=== PATIENT | male | born 1995 | race Two or more races ===

== ENCOUNTER 2017-09-23 02:24 | Emergency (ER) | payer SELFPAY ==
[~2017-09-23] VITALS: Ht 175.3 cm; Wt 72.6 kg
[~2017-09-23 02:24] MED LIST: NKM
[2017-09-23] MEDS ORDERED: LORazepam Inj 2mg/ml 1ml IV ONE (02:30)
[2017-09-23 02:37] VITALS: BP 137/71
--- NOTE | 2017-09-23 02:51 | Emergency Room Report ---
History of Present Illness General Chief Complaint: Dyspnea/Respdistress Source: Patient Present Illness HPI [facility] was acting [facility]. Police were contacted. He states that the [place] cartel is after him. Paramedics were called after that because he is complaining the shortness of breath and tingling in his hands. He has a history of asthma. He denies suicidal or homicidal ideation. He denies prior psychiatric illness. c/o dry mouth, racing heart and tingling of hands and feet. Denies SI or HI. No NVD, chest pain, dysuria, joint pain, headache, trauma. Denies drugs or alcohol. Allergies: Coded Allergies: No Known Allergies (Unverified , 09/23/17) Patient History Past Medical History: see triage record Social History: Denies: smoking, alcohol use, drug use - see tox Social History Narrative sells cell phones Reviewed Nursing Documentation: PMH: Agreed, PSxH: Agreed Nursing Documentation-PMH Past Medical History: No Stated History Review of Systems All Other Systems: negative except mentioned in HPI Physical Exam Vital Signs Date Time Temp Pulse Resp B/P (MAP) Pulse Ox O2 Delivery O2 Flow Rate FiO2 09/23/17 02:19 98.1 128 18 141/107 99 Room Air Sp02 EP Interpretation: reviewed, normal General Appearance: mild distress Head: normocephalic Eyes: bilateral eye PERRL, bilateral eye Scleral Injection ENT: dry mucus membranes - with gum residue lips Neck: supple Respiratory: lungs clear, normal breath sounds Cardiovascular #1: tachycardia Cardiovascular #2: 2+ radial (R) Gastrointestinal: normal inspection, normal bowel sounds, non tender, no mass, non-distended Musculoskeletal: back normal, gait/station normal, normal range of motion Neurologic: alert, oriented x3, motor strength/tone normal, DTRs symmetric, sensory intact, cerebellar normal, normal gait, speech normal - pressured Psychiatric: no suicidal/homicidal ideation, anxious - slight paranoid ideation Skin: normal inspection, warm/dry Medical Decision Making Diagnostic Impression: 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 Differential includes hyperventilation, exacerbation of paranoid schizophrenia, electrolyte imbalance, acute myocardial infarction, occult infection, drug ingestion amongst others. Evaluation with EKG, chest x-ray and labs. This will be treated with IV hydration and Ativan. We need to exclude rhabdomyolysis and renal failure. EKG, no injury, CXR no infiltrate, labs with + amphetamine. CO2 low suggests hyperventilation. Patient improved with treatment. No longer paranoid or suicidal. Patient stable for outpatient observation and treatment. Laboratory Tests Test 09/23/17 03:00 09/23/17 03:15 White Blood Count 8.3 K/UL (4.8-10.8) Red Blood Count 5.81 M/UL (4.70-6.10) Hemoglobin 17.0 G/DL (14.2-18.0) Hematocrit 51.1 % (42.0-52.0) Mean Corpuscular Volume 88 FL (80-99) Mean Corpuscular Hemoglobin 29.3 PG (27.0-31.0) Mean Corpuscular Hemoglobin Concent 33.3 G/DL (32.0-36.0) Red Cell Distribution Width 11.1 % (11.6-14.8) L Platelet Count 345 K/UL (150-450) Mean Platelet Volume 6.7 FL (6.5-10.1) Neutrophils (%) (Auto) 77.5 % (45.0-75.0) H Lymphocytes (%) (Auto) 15.2 % (20.0-45.0) L Monocytes (%) (Auto) 6.1 % (1.0-10.0) Eosinophils (%) (Auto) 0.1 % (0.0-3.0) Basophils (%) (Auto) 1.1 % (0.0-2.0) Sodium Level 142 MMOL/L (136-145) Potassium Level 4.4 MMOL/L (3.5-5.1) Chloride Level 102 MMOL/L (98-107) Carbon Dioxide Level 20 MMOL/L (21-32) L Anion Gap 20 mmol/L (5-15) H Blood Urea Nitrogen 6 mg/dL (7-18) L Creatinine 1.3 MG/DL (0.55-1.30) Estimate Glomerular Filtration Rate > 60 mL/min (>60) Glucose Level 100 MG/DL (74-106) Calcium Level 9.2 MG/DL (8.5-10.1) Total Bilirubin 0.4 MG/DL (0.2-1.0) Aspartate Amino Transferase (AST) 42 U/L (15-37) H Alanine Aminotransferase (ALT) 41 U/L (12-78) Alkaline Phosphatase 92 U/L (46-116) Total Creatine Kinase 898 U/L (26-308) H Troponin I 0.003 ng/mL (0.000-0.056) Total Protein 8.7 G/DL (6.4-8.2) H Albumin 5.0 G/DL (3.4-5.0) Globulin 3.7 g/dL Albumin/Globulin Ratio 1.4 (1.0-2.7) Salicylates Level 1.5 ug/mL (2.8-20) L Acetaminophen Level < 2 MCG/ML (10-30) L Serum Alcohol 137 mg/dL Urine Color Pale yellow Urine Appearance Clear Urine pH 6.5 (4.5-8.0) Urine Specific [place] 1.005 (1.005-1.035) Urine Protein Negative (NEGATIVE) Urine Glucose (UA) Negative (NEGATIVE) Urine Ketones Negative (NEGATIVE) Urine Occult Blood Negative (NEGATIVE) Urine Nitrite Negative (NEGATIVE) Urine Bilirubin Negative (NEGATIVE) Urine Urobilinogen Normal MG/DL (0.0-1.0) Urine Leukocyte Esterase Negative (NEGATIVE) Urine Opiates Screen Negative (NEGATIVE) Urine Barbiturates Screen Negative (NEGATIVE) Phencyclidine (PCP) Screen Negative (NEGATIVE) Urine Amphetamines Screen Positive (NEGATIVE) H Urine Benzodiazepines Screen Negative (NEGATIVE) Urine Cocaine Screen Negative (NEGATIVE) Urine Marijuana (THC) Screen Negative (NEGATIVE) EKG Diagnostic Results Rate: tachycardiac ST Segments: no acute changes Rhythm Strip Diag. Results EP Interpretation: yes Rhythm: no PVC's, no ectopy, other - ST Last Vital Signs Date Time Temp Pulse Resp B/P (MAP) Pulse Ox O2 Delivery O2 Flow Rate FiO2 09/23/17 05:22 100 16 134/88 98 Room Air 09/23/17 05:16 98.0 Status: improved Disposition: HOME, SELF-CARE Condition: Improved Fabio Garcia M.D. Sep 23, 2017 02:51
[2017-09-23 03:28] LABS: BASOPHILS % (AUTO) 1.1 % (0.0-2.0); EOSINOPHILS % (AUTO) 0.1 % (0.0-3.0); LYMPHOCYTES % (AUTO) 15.2 % (20.0-45.0); MEAN CORPUSCULAR HEMOGLOBIN 29.3 PG (27.0-31.0); MEAN CORPUSCULAR HGB CONC 33.3 G/DL (32.0-36.0); MEAN CORPUSCULAR VOLUME 88 FL (80-99); MEAN PLATELET VOLUME 6.7 FL (6.5-10.1); MONOCYTES % (AUTO) 6.1 % (1.0-10.0); NEUTROPHILS % (AUTO) 77.5 % (45.0-75.0); PLATELET COUNT 345 K/UL (150-450); RED BLOOD COUNT 5.81 M/UL (4.70-6.10); RED CELL DISTRIBUTION WIDTH 11.1 % (11.6-14.8); WHITE BLOOD COUNT 8.3 K/UL (4.8-10.8)
[2017-09-23 03:35] LABS: APPEARANCE,URINE CLEAR; KETONES,URINE NEGATIVE (NEGATIVE); LEUKOCYTE ESTERASE ,URINE NEGATIVE (NEGATIVE); NITRITE,URINE NEGATIVE (NEGATIVE); PH,URINE 6.5 (4.5-8.0); PROTEIN,URINE NEGATIVE (NEGATIVE); UROBILINOGEN,URINE NORMAL MG/DL (0.0-1.0)
[2017-09-23 03:51] LABS: ACETAMINOPHEN < 2 MCG/ML (10-30)
[2017-09-23 03:59] LABS: ANION GAP 20 mmol/L (5-15); CALCIUM 9.2 MG/DL (8.5-10.1); CARBON DIOXIDE 20 MMOL/L (21-32); CHLORIDE 102 MMOL/L (98-107); CREATININE 1.3 MG/DL (0.55-1.30); GLOMERULAR FILTRATION RATE > 60 mL/min (>60); POTASSIUM 4.4 MMOL/L (3.5-5.1); SODIUM 142 MMOL/L (136-145)
[2017-09-23 04:04] LABS: ALANINE AMINOTRANSFERASE 41 U/L (12-78); ALBUMIN/GLOBULIN RATIO 1.4 (1.0-2.7); ALCOHOL 137 mg/dL; ASPARTATE AMINO TRANSFERASE 42 U/L (15-37); TOTAL PROTEIN 8.7 G/DL (6.4-8.2)
[2017-09-23 05:16] VITALS: BP 134/88
[2017-09-23 05:22] VITALS: BP 134/88
--- NOTE | 2017-09-23 12:15 | Diagnostic Imaging Report ---
Indication: Dyspnea Comparison: None A single view chest radiograph was obtained. Findings: Cardiomediastinal appearance is within normal limits for age. Pulmonary vascularity is appropriate. The diaphragmatic contour is smooth and costophrenic angles are sharp. No pleural effusions are identified. The bones are unremarkable. Impression: No acute findings
--- NOTE | 2017-10-07 00:23 | Cardiology Report ---
APPROVED REPORT EKG Measurement Heart [id number] Sinus tachycardia Otherwise normal ECG
== END 2017-09-23 05:23 | disposition home or self-care (01) ==
LOC: EDBD 02:24 → EMR 03:04
DX: F23 Brief psychotic disorder (principal); F15.10 Other stimulant abuse, uncomplicated
CPT/HCPCS: 36415; 71010; 80053; 80307; 81003; 82550; 84484; 85025; 93005; 96361; 96374; 99284; G0480; 80329